=== PATIENT | female | born 1990 ===

== ENCOUNTER 2020-05-31 22:47 | Inpatient (IN) | payer OTHER ==
[2020-05-31] MEDS ORDERED: NS / Oxytocin 40 units/1000ml 1,000 ML ONE (23:12)
[2020-05-31] MEDS ORDERED: Lidocaine 1% (PF) 30 ML VIAL ONE (23:12)
[2020-05-31] MEDS ORDERED: Misoprostol 200 MCG TAB ONE (23:18)
[2020-05-31] MEDS ORDERED: Methylergonovine 0.2 MG/ML VIAL ONE (23:18)
[2020-05-31] MEDS ORDERED: Carboprost 250 MCG/ML AMP ONE (23:18)
[2020-05-31] MEDS ORDERED: Lidocaine 1% (PF) 30 ML VIAL SC PRN (23:38)
[2020-05-31] MEDS ORDERED: hydrALAZINE 20 MG/ML VIAL SLOW IVP PRN (23:38)
[2020-05-31] MEDS ORDERED: Ondansetron PF 4 MG/2 ML Vial IVP PRN (23:38)
[2020-05-31] MEDS ORDERED: Ibuprofen 800 MG TAB PO PRN (23:38)
[2020-05-31] MEDS ORDERED: HYDROcodone/Acetaminophen 5/325 mg Tablet PO PRN (23:38)
[2020-05-31 23:40] VITALS: BMI 33.5
[2020-05-31] MEDS ORDERED: Lactated Ringer's 1,000 ML IV SCH (23:45)
[2020-06-01] MEDS: NS / Oxytocin 40 units/1000ml 1,000 ML IV PRN ×2 (00:13→01:56)
[2020-06-01] MEDS ORDERED: Lactated Ringer's 1,000 ML IV SCH (00:45)
--- NOTE | 2020-06-01 01:46 | DN ---
DATE OF PROCEDURE: 05/31/2020 The patient delivered a male infant at 39 weeks and 5 days gestation on 05/31/2020 at 2320 hours by a precipitous term spontaneous vaginal delivery. Apgars were 9 and 9. weight is 3786 g. Placenta delivered spontaneously followed by Pitocin infusion. There was a labial laceration that was hemostatic and did not need repair. Quantitative blood loss was [address] Fredo Jaramillo is the delivering physician. Counts were correct. Mother and baby were stable in the room in the immediate . Job ID: [id number]
[2020-06-01 01:51] LABS: Hemoglobin 10.7 g/dL (12.0-16.0); Mean Corpuscular HGB CONC 33.3 g/dL (32.0-36.0); Mean Corpuscular Hemoglobin 28.4 pg (27.0-31.0); Mean Corpuscular Volume 85.4 fL (78.0-98.0); Mean Platelet Volume 8.4 fL (7.4-10.4); Platelet Count 243 thou/uL (130-400); RBC Distribution Width 14.3 % (11.5-14.5); Red Blood Cell (RBC) Count 3.77 mill/uL (4.20-5.40); White Blood Cell (WBC) Count 12.7 thou/uL (4.8-10.8)
[2020-06-01 02:29] LABS: HBSAg Index 0.23 S/CO (0-0.99); Hep B Surf Ag Non-Reactive S/CO (NonReactive)
[2020-06-01] MEDS ORDERED: Adacel (T-DAP) 0.5 ML SYRINGE IM ONE (02:38)
[2020-06-01] MEDS ORDERED: NS / Oxytocin 40 units/1000ml 1,000 ML IV SCH (02:38)
[2020-06-01] MEDS ORDERED: hydrALAZINE 20 MG/ML VIAL SLOW IVP PRN (02:38)
[2020-06-01] MEDS ORDERED: Lanolin Ointment 7 GM TUBE TOP PRN (02:38)
[2020-06-01] MEDS ORDERED: Milk Of Magnesia 30 ML UDCUP PO PRN (02:38)
[2020-06-01] MEDS ORDERED: Bisacodyl 10 MG SUPP PR PRN (02:38)
[2020-06-01 04:19] LABS: Syphilis Antibody Nonreactive (Nonreactive); Syphilis Antibody Index 0.07 S/CO (<1.00 Non-Reactive)
[2020-06-01] MEDS ORDERED: HYDROcodone/Acetaminophen 5/325 mg Tablet PO PRN (06:34)
[2020-06-01] MEDS: Ferrous Sulfate 325 MG TAB PO SCH ×2 (09:08→15:49)
[2020-06-01] MEDS: Ibuprofen 800 MG TAB PO SCH ×3 (09:08→23:17)
[2020-06-01] MEDS: Prenatal Vitamin 1 TAB PO SCH (09:08)
[2020-06-01] MEDS: Docusate Calcium (SURFAK) 240 MG CAP PO SCH ×2 (09:08→23:16)
[2020-06-01 13:17] LABS: SARS-CoV-2 MS2 Positive; SARS-CoV-2 N Gene Negative; SARS-CoV-2 S Gene Negative; SARS-CoV-2 by NAA Not Detected (NotDetected); SARS-CoV-2 orf1ab Negative
[2020-06-02] MEDS: Ibuprofen 800 MG TAB PO SCH ×3 (01:10→14:57)
[2020-06-02 07:55] LABS: #Eosinphils 0.1 thou/uL (0.0-0.7); #Lymphocytes 1.9 thou/uL (1.20-3.40); #Monocytes 0.6 thou/uL (0.11-0.59); #Neutrophils 7.2 thou/uL (1.40-6.50); %Basophils 0.3 % (0.0-1.0); %Eosinophils 1.4 % (0.0-10.0); %Lymphocytes 19.4 % (21.0-51.0); %Monocytes 6.1 % (0.0-10.0); %Neutrophils 72.8 % (42.0-75.0); Hemoglobin 10.5 g/dL (12.0-16.0); Mean Corpuscular Volume 87.4 fL (78.0-98.0); Mean Platelet Volume 8.3 fL (7.4-10.4); Platelet Count 261 thou/uL (130-400); RBC Distribution Width 14.4 % (11.5-14.5); Red Blood Cell (RBC) Count 3.77 mill/uL (4.20-5.40); White Blood Cell (WBC) Count 9.9 thou/uL (4.8-10.8)
[2020-06-02] MEDS: Docusate Calcium (SURFAK) 240 MG CAP PO SCH (08:25)
[2020-06-02] MEDS: Prenatal Vitamin 1 TAB PO SCH (08:25)
[2020-06-02] MEDS: Ferrous Sulfate 325 MG TAB PO SCH ×2 (08:25→16:35)
[2020-06-02 08:33] VITALS: BP 120/71; TEMP 98.4
== END 2020-06-02 20:15 | disposition home or self-care (01) | DRG 807 ==
LOC: L&D/OP 22:47 → L&D 23:09 → 3SW 06-01 02:34
PROVIDERS: ADMIT Family Medicine; ATTEND Family Medicine
PROC: 10E0XZZ Delivery of Products of Conception, External Approach (ICD-10-PCS; principal; 2020-06-01)
DX: O70.0 First degree perineal laceration during delivery (principal); Z37.0 Single live birth; Z3A.39 39 weeks gestation of pregnancy
CPT/HCPCS: 36415; 85025; 85027; 86780; 86850; 86900; 86901; 87340; 87635; 88307; 99285; J2001; J2210; J3490; U0003